=== PATIENT | female | born 1990 | race Caucasian/White ===

== ENCOUNTER 2022-05-21 13:59 | Inpatient (IN) | payer BC ==
[~2022-05-21] VITALS: Ht 177.8 cm; Wt 110.9 kg
[~2022-05-21 13:59] MED LIST: SPRINTEC 35 MCG1 TAB PO
[2022-05-25] VITALS (51 sets, daily range): BP systolic 90–144; BP diastolic 52–97; PULSE 69–111; TEMP 97.3–98.3
[2022-05-25] MEDS ORDERED: PRENATAL TABLET PO (06:53)
--- NOTE | 2022-05-25 07:00 | NUR ---
0625- Pt arrives on unit ambulatory for scheduled induction with spouse, Juanjo. Pt changes into gown. 0634- Pt into bed, EFM and TOCO on and tracing well. O2 sat monitor on and tracing maternal HR. VSS. Assessments completed. Pt denies UC, VB, LOF. +FM per Pt. 0710- IV start, labs obtained. LR bolus initiated. Pitocin started per protocol.
[2022-05-25 08:09] LABS: HEMATOCRIT 38.9 % (37.0-47.0); HEMOGLOBIN 13.3 g/dl (12.5-16.0); MEAN CELL VOLUME 95 fl (80.0-100.0); MEAN CORPUSCULAR HEMOGLOBIN 32 pg (27-31); MEAN CORPUSCULAR HGB CONC 34 g/dl (33.0-37.0); PLATELET COUNT 178 K/mm3 (130-400); RED BLOOD COUNT 4.11 M/mm3 (4.10-5.30); REDCELL DISTRIBUTION WIDTH-CV 13.3 % (11.5-14.5)
[2022-05-25 09:13] LABS: BAND 5 % (0-10); EOSINOPHIL 1 % (0-4); LYMPHOCYTE 16 % (20.0-51.0); NEUTROPHILS 75 % (42.0-75.2); PLATELET ESTIMATE NORMAL (NORMAL)
--- NOTE | 2022-05-25 12:00 | NUR ---
1145- RNX2 BEDSIDE; ADJUSTING US; PT REMAINS ON RIGHT SIDE 1151- PT MOVED TO LEFT SIDE; MONITORS ADJUSTED; BP'S CYCLING
--- NOTE | 2022-05-25 13:22 | NUR ---
1238- PT MOVED TO HIGH FOWLERS. 1300 MD BEDSIDE TO ASSESS PT
--- NOTE | 2022-05-25 14:12 | NUR ---
RN BEDSIDE AND PERFRMED SVE AT 1354. PT MOVED TO FAR RIGHT LATERAL WITH PEANUT BALL. ANIKET URENA NOTIFIED OF SVE, FHTS, CTX PATTERN AND NO NEW ORDERS AT THIS TIME.
--- NOTE | 2022-05-25 15:48 | NUR ---
1513-RN BEDSIDE TO PERFORM SVE AND CHANGE PT POSITION 1515- PT MOVED TO HIGH FOWLERS POSITION WITH RN ASSISTANCE 1517- PT MOVED TO LEFT SIDE. RN X3 BEDSIDE. IVFB STARTED. 1521-PITOCIN OFF. PT MOVED TO RIGHT LATERAL. O2 PLACED ON PATIENT 1522- MD NOTIFIED. SEE NOTIFICATION NOTE FOR ORDERS RECIEVED 1525-RN EXPLAINS INTERVENTIONS PEFORMED AND REASONING TO PT AND FOB. ALL QUESTIONS ANSWERED AND PT VERBALIZES UNDERSTANDING.
--- NOTE | 2022-05-25 16:30 | NUR ---
1615- Powell removed. Pt prepped and coached for pusing by ARVIN Gray. 1619- Pt begins pushing with UCs, ARVIN Gray remains at bedside.
--- NOTE | 2022-05-25 16:45 | NUR ---
1630- Dr Casillas at bedside, pushes with Pt. 1710- MD to hallway, remains at nurses station.
--- NOTE | 2022-05-25 17:45 | NUR ---
1731- Dr Casillas at bedside to evaluate pushing, remains at bedside with Pt.
--- NOTE | 2022-05-25 18:00 | NUR ---
1757- FHR late decel noted down to the 90's lasting approx 2 mins. Pitocin decreased to 8mu. Dr Casillas at bedside, pushes with Pt, remains at bedside.
--- NOTE | 2022-05-25 18:15 | NUR ---
THIS NURSE ASSUMES CARE OF PT. DR. MARCIAL IN ROOM PUSHING WITH PT.
--- NOTE | 2022-05-25 19:20 | NUR ---
1843- DR. MARCIAL DISCUSSES ASSISTING WITH A VACUUM, PARENTS AGREE TO VACUUM ASSISTED DELIVERY. 1845- VACUUM APPLIED WITH CTX, NO POP OFFS. SUCTION RELEASED AFTER CTX COMPLETED. 1850- VACUUM APPLIED WITH CTX, NO POP OFFS, SUCTION RELEASED AFTER CTX COMPLETED. 1852- VACUUM APPLIED WITH CTX, NO POP OFFS, SUCTION RELEASED HEAD DELIVERED. 1853- VACUUM ASSISTED DELIVERY OF VIABLE BABY BOY. BABY TO MOTHER'S CHEST, CORD CLAMPED BY DR. MARCIAL, CUT BY FOB. BABY DRIED AND STIMULATED AND CARES ASSUMED BY Maribell COMER RN. 1899- DR. MARCIAL BEGINS REPAIR OF BILATERAL LABIAL LACERATIONS AND 2ND DEGREE PERINEAL LACERATION. 1905- SPONTANEOUS DELIVERY OF INTACT PLACENTA. PITOCIN STARTED AT 333MLS/HR PER PROTOCOL. 1908- 800MCG CYTOTEC GIVEN RECTALLY BY DR. MARCIAL. 1916- RED NAYA PERFORMED PER DR. MARCIAL, 100MLS URINE OUT. 1919- RECOVERY STARTED.
--- NOTE | 2022-05-25 22:15 | NUR ---
EPIDURAL DC'D, BLUE TIP INTACT. PT UP TO BATHROOM VIA [email or web address], UNABLE TO VOID AT THIS TIME. ASSISTED WITH PERICARE, ICE PACK, PERIPAD AND MESH UNDERWEAR APPLIED, CLEAN GOWN ON. PT TO ROOM VIA [email or web address]. ORIENTED TO ROOM. PT AND SPOUSE DENY QUESTIONS AT THIS TIME.
[2022-05-26 03:10] VITALS: BP 93/51; PULSE 79; TEMP 98.6
[2022-05-26 07:30] VITALS: BP 103/67; PULSE 84; TEMP 98.5
--- NOTE | 2022-05-26 09:37 | NUR ---
Initial visit; Mom indisposed, Flight Communications Officer spoke with Dad. Flight Communications Officer offered Congratulations and God's blessings for the of their son. Dad thanked Flight Communications Officer for stopping. Flight Communications Officer also left a card offering Spiritual Care at our hospital.
[2022-05-26 11:30] VITALS: BP 102/68; PULSE 80
[2022-05-26 15:28] VITALS: BP 117/66; PULSE 78
[2022-05-26 22:23] VITALS: BP 114/62; PULSE 77; TEMP 98.1
[2022-05-27 07:30] VITALS: BP 110/71; PULSE 78; TEMP 98.5
[2022-05-27] MEDS ORDERED: IBU600 MG PO (08:39)
== END 2022-05-27 11:10 | disposition home or self-care (01) | DRG 807 ==
LOC: OB → LDR 05-25 06:22 → OB 05-25 13:58
PROVIDERS: ADMIT Obstetrics & Gynecology
PROC: 10D07Z6 Extraction of Products of Conception, Vacuum, Via Natural or Artificial Opening (ICD-10-PCS; principal; 2022-05-25)
PROC: 0KQM0ZZ Repair Perineum Muscle, Open Approach (ICD-10-PCS; 2022-05-25)
PROC: 0UQMXZZ Repair Vulva, External Approach (ICD-10-PCS; 2022-05-25)
PROC: 10907ZC Drainage of Amniotic Fluid, Therapeutic from Products of Conception, Via Natural or Artificial Opening (ICD-10-PCS; 2022-05-25)
DX: O48.0 Post-term pregnancy (principal); Z37.0 Single live birth; O99.214 Obesity complicating childbirth; Z3A.40 40 weeks gestation of pregnancy; O76 Abnormality in fetal heart rate and rhythm complicating labor and delivery; O70.1 Second degree perineal laceration during delivery; O75.89 Other specified complications of labor and delivery; Z86.16 Personal history of COVID-19
CPT/HCPCS: J2590; J2795; J7120